=== PATIENT | female | born 1990 | race Two or more races ===

== ENCOUNTER 2020-07-12 09:49 | Emergency (ER) | payer SELFPAY ==
[~2020-07-12] VITALS: Ht 175.3 cm; Wt 68.5 kg
== END 2020-07-12 14:03 | disposition left against medical advice (07) ==
LOC: ER 09:49
DX: N93.9 Abnormal uterine and vaginal bleeding, unspecified (principal); Z53.21 Procedure and treatment not carried out due to patient leaving prior to being seen by health care provider

== ENCOUNTER 2020-09-06 13:46 | Emergency (ER) | payer SELFPAY ==
[~2020-09-06] VITALS: Ht 175.3 cm; Wt 70.3 kg
[2020-09-06 13:47] VITALS: BP 136/91
[2020-09-06 14:12] LABS: Urine Bacteria NONE SEEN /hpf (None Seen); Urine Blood Negative /uL (Negative); Urine Specific Gravity 1.003 (1.001-1.035); Urine WBC 1 /hpf (0 - 5)
[2020-09-06] MEDS ORDERED: KETOROLAC TROMETH 60MG/2ML VIAL IM ONE (15:00)
[2020-09-06 15:29] LABS: Basophils # (auto) 0.1 10 ^3/uL (0-0.2); Basophils % (auto) 1.1 % (0.0-2.0); Eosinophils # (auto) 0.1 10 ^3/uL (0-0.8); Eosinophils % (auto) 0.8 % (0.0-7.0); Hematocrit 43.5 % (36.0-46.0); Hemoglobin 14.9 g/dL (12.2-16.2); Lymphocytes # (auto) 4.5 10 ^3/uL (0.4-5.4); Mean Corpuscular Hemoglobin 30.8 pg (28.0-32.0); Mean Corpuscular Hgb Conc. 34.2 g/dL (32.0-36.0); Mean Corpuscular Volume 89.9 fL (80.0-100.0); Monocytes % (auto) 10.8 % (0.0-12.0); Neutrophils # (auto) 3.7 10 ^3/uL (1.6-8.6); Neutrophils % (auto) 39.3 % (37.0-80.0); Nucleated Red Blood Cells % 0.2 %; Platelet Count (auto) 244 10^3/uL (140-450); Red Blood Cells 4.84 10^6/uL (4.0-5.20); Red Cell Distribution Width 13.7 % (11.8-14.3); White Blood Cell 9.4 10^3/uL (4.4-10.8)
[2020-09-06 15:45] LABS: Albumin 3.5 g/dL (3.4-5.0); Calcium 9.2 mg/dL (8.5-10.1); Potassium 4.2 mmol/L (3.5-5.1)
[2020-09-06 15:49] LABS: BUN/Creatinine Ratio 13.5; Bilirubin, Total 0.5 mg/dL (0.2-1.0)
== END 2020-09-06 16:24 | disposition home or self-care (01) ==
LOC: ER 13:46
DX: S39.011A Strain of muscle, fascia and tendon of abdomen, initial encounter (principal); K52.89 Other specified noninfective gastroenteritis and colitis; X58.XXXA Exposure to other specified factors, initial encounter; Y93.89 Activity, other specified; Y92.89 Other specified places as the place of occurrence of the external cause; Y99.8 Other external cause status
CPT/HCPCS: 36415; 74176; 80053; 81001; 83690; 85025; 96372; 99284; J1885

== ENCOUNTER 2021-05-23 13:35 | Emergency (ER) | payer SELFPAY ==
[~2021-05-23] VITALS: Ht 175.3 cm; Wt 61.2 kg
[2021-05-23 13:36] VITALS: BP 105/79
== END 2021-05-23 15:30 | disposition left against medical advice (07) ==
LOC: ER 13:35
DX: S90.561A Insect bite (nonvenomous), right ankle, initial encounter (principal); Z53.21 Procedure and treatment not carried out due to patient leaving prior to being seen by health care provider; W57.XXXA Bitten or stung by nonvenomous insect and other nonvenomous arthropods, initial encounter; Y93.89 Activity, other specified; Y92.89 Other specified places as the place of occurrence of the external cause; Y99.8 Other external cause status